=== PATIENT | female | born 1975 | race Caucasian/White ===

== ENCOUNTER 2017-06-21 09:49 | Emergency (ER) | payer OTHER ==
[2017-06-21] MEDS ORDERED: TORAdol 30 mg Injection IM ONE (11:35)
[2017-06-21] MEDS ORDERED: TORAdol 30 mg Injection ONE (11:39)
--- NOTE | 2017-06-21 11:42 | ERPHSYRPT ---
- History of Present Illness Time Seen by Provider: 06/21/17 11:31 Source: patient Exam Limitations: no limitations Patient Subjective Stated Complaint: left upper arm pain been hurting "for a little bit" today worsening pain Triage Nursing Assessment: left upper arm pain, decreased function per client, Physician History: 42 year old white female arrives with complaint of left shoulder pain worse with movement symptoms for 1 month, worse since this am, States she has been seen by her family doctor in the past for the same and given tramadol states "it didn't do anything for me" Past medical history negative Past surgical history hysterectomy, cholecystectomy, c section, left ovary Occurred: other (symptoms for 1 month) Method of Injury: unknown Quality: other (constant, worse since this am) Extremities Pain Location: shoulder: left Modifying Factors: Improves With: movement Associated Symptoms: none Allergies/Adverse Reactions: No Known Drug Allergies Allergy (Unverified 06/21/17 11:46) Hx Tetanus, Diphtheria Vaccination/Date Given: Yes Hx Influenza Vaccination/Date Given: No Hx Pneumococcal Vaccination/Date Given: No Immunizations Up to Date: Yes - Review of Systems Constitutional: No Fever, No Chills Eyes: No Symptoms Ears, Nose, & Throat: No Symptoms Respiratory: No Cough, No Dyspnea Cardiac: No Chest Pain, No Edema, No Syncope Abdominal/Gastrointestinal: No Abdominal Pain, No Nausea, No Vomiting, No Diarrhea Genitourinary Symptoms: No Dysuria Musculoskeletal: Arthralgias (left shoulder pain worse with movement) Skin: No Rash Neurological: No Dizziness, No Focal Weakness, No Sensory Changes Psychological: No Symptoms Endocrine: No Symptoms All Other Systems: Reviewed and Negative - Past Medical History Pertinent Past Medical History: No - Past Surgical History Past Surgical History: Yes Gastrointestinal: Cholecystectomy Female Surgical History: Hysterectomy, Section Other Surgical History: right ovary removed - Social History Smoking Status: Never smoker - Female History Hx Last Menstrual Period: hysterectomy Hx Now: No - Nursing Vital Signs Nursing Vital Signs: Initial Vital Signs Temperature 97.8 F 06/21/17 11:23 Pulse Rate 68 06/21/17 11:23 Respiratory Rate 18 06/21/17 11:23 Blood Pressure 141/91 06/21/17 11:23 O2 Sat by Pulse Oximetry 99 06/21/17 11:23 Pain Scale Pain Intensity 8 - Physical Exam General Appearance: alert Eyes, Ears, Nose, Throat Exam: moist mucous membranes Neck Exam: non-tender, supple Cardiovascular/Respiratory Exam: chest non-tender, normal breath sounds, regular rate/rhythm, no respiratory distress Abdominal Exam: non-tender, No guarding Back Exam: normal inspection, No vertebral tenderness Shoulder Exam: normal ROM, No normal inspection (pain with movement and palpation left shoulder) Elbow/Forearm Exam: normal inspection, non-tender, no evidence of injury, normal ROM Wrist Exam: normal inspection, non-tender, no evidence of injury, normal ROM Hand Exam: normal inspection, non-tender, no evidence of injury, normal ROM Neuro/Tendon Exam: normal sensation, normal motor functions Mental Status Exam: alert, oriented x 3, cooperative Skin Exam: normal color, warm, dry SpO2 Interpretation: normal (99%) SpO2: 99 Oxygen Delivery: Room Air - Course Nursing assessment & vital signs reviewed: Yes - Radiology Exams Right Shoulder X-ray Interpretation: Interpreted by me, Negative, No Fracture, No Subluxation Ordered Tests: Active Orders 24 hr Category Date Time Status EKG-ER Only STAT Care 06/21/17 11:36 Active Sling Application STAT Care 06/21/17 12:35 Active SHOULDER Stat Exams 06/21/17 11:36 Taken Medication Summary Discontinued Medications Generic Name Dose Route Start Last Admin Trade Name Eric PRN Reason Stop Dose Admin Ketorolac Tromethamine 60 mg 06/21/17 11:35 06/21/17 11:41 Toradol 30 Mg Injection IM 06/21/17 11:36 60 mg STAT ONE Administration Ketorolac Tromethamine Confirm 06/21/17 11:39 Toradol 30 Mg Injection Administered 06/21/17 11:40 Dose 60 mg .ROUTE .STK-MED ONE - Progress Progress: improved Progress Note: 06/21/17 12:36 Patient x ray left shoulder negative for fracture or dislocation, ekg no acute changes, patient given toradol for pain . will place patient in sling and prescribe tapering prednisone - Departure Time of Disposition: 12:37 Departure Disposition: Home Clinical Impression: Left shoulder pain Qualifiers: Chronicity: unspecified Qualified Code(s): M25.512 - Pain in left shoulder Condition: Fair Critical Care Time: No Referrals: ANKITA OH II [Primary Care Provider] - Additional Instructions: Return home, ice to left shoulder 24-48 hours, use sling 48-72 hours, prednisone taper as directed, follow up with your family doctor. Return for acute distress or for severe symptoms.
[2017-06-21 12:41] VITALS: BP 128/83; PULSE 56; O2SAT 98
--- NOTE | 2017-06-21 20:46 | XRAY ---
Indication: Pain and numbness one month. No known injury. Comparison: None 3 views of the left shoulder obtained. No bony, articular, or soft tissue abnormalities.
== END 2017-06-21 12:43 | disposition home or self-care (01) ==
LOC: ED 09:49 → SUPCPDRO 09:49 → ED 12:43
DX: M25.512 Pain in left shoulder (principal)
CPT/HCPCS: 73030; 93005; 99284; J1885

== ENCOUNTER 2018-06-22 15:56 | Emergency (ER) | payer OTHER ==
[2018-06-22] MEDS ORDERED: Sodium Chloride 0.9% 1000 ML 1,000 ML IV STA (17:07)
--- NOTE | 2018-06-22 17:07 | ERPHSYRPT ---
- History of Present Illness Time Seen by Provider: 06/22/18 17:04 Source: patient, family Exam Limitations: no limitations Patient Subjective Stated Complaint: Was sitting when she suddenly became light- headed, dizzy and began shaking, about 10 minutes later began vomiting Triage Nursing Assessment: Pt reports that she was sitting when she suddenly became light-headed, dizzy and began shaking, about 10 minutes later began vomiting, can't look up due to getting dizzy, denies any issues prior, last intake at approximately 1100-pizza, bowel sounds heard in all 4 quadrants Physician History: The patient is a 43-year-old female with her complaining that she suddenly became dizzy with the room spinning when she moves her head forward and then began to vomit. She's been vomiting every time she opens her eyes and moves her head forward. She denies abdominal pain. She denies headache. Her past medical history is significant for depression. Timing/Duration: today, hour(s) (1), sudden Severity: severe Modifying Factors: Improves With: nothing Associated Symptoms: nausea, vomiting, No headaches Allergies/Adverse Reactions: No Known Drug Allergies Allergy (Verified 06/22/18 16:13) Home Medications: No Reportable Medications [No Reported Medications] 06/22/18 [History] Hx Tetanus, Diphtheria Vaccination/Date Given: Yes Hx Influenza Vaccination/Date Given: No Hx Pneumococcal Vaccination/Date Given: No - Review of Systems Constitutional: No Fever, No Chills Eyes: No Symptoms Ears, Nose, & Throat: No Symptoms Respiratory: No Cough, No Dyspnea Cardiac: No Chest Pain, No Edema, No Syncope Abdominal/Gastrointestinal: Nausea, Vomiting Genitourinary Symptoms: No Dysuria Musculoskeletal: No Back Pain, No Neck Pain Skin: No Rash Neurological: Dizziness Psychological: No Symptoms Endocrine: No Symptoms Hematologic/Lymphatic: No Symptoms Immunological/Allergic: No Symptoms All Other Systems: Reviewed and Negative - Past Medical History Pertinent Past Medical History: Yes Psycho-Social History: Depression - Past Surgical History Past Surgical History: Yes Gastrointestinal: Cholecystectomy Female Surgical History: Hysterectomy, Section Other Surgical History: right ovary removed - Social History Smoking Status: Never smoker Exposure to second hand smoke: No Drug Use: none Patient Lives Alone: No - Female History Hx Now: No (hysterectomy) - Nursing Vital Signs Nursing Vital Signs: Initial Vital Signs Temperature 97.7 F 06/22/18 16:00 Pulse Rate 77 06/22/18 16:00 Blood Pressure 142/94 06/22/18 16:00 O2 Sat by Pulse Oximetry 96 06/22/18 16:00 Pain Scale Pain Intensity 0 - Physical Exam General Appearance: moderate distress Eye Exam: PERRL/EOMI, eyes nml inspection Ears, Nose, Throat Exam: normal ENT inspection, TMs normal, pharynx normal, moist mucous membranes Neck Exam: normal inspection, non-tender, supple, full range of motion Respiratory Exam: normal breath sounds, lungs clear, No respiratory distress Cardiovascular Exam: regular rate/rhythm, normal heart sounds, normal peripheral pulses Gastrointestinal/Abdomen Exam: soft, normal bowel sounds, No tenderness, No mass Pelvic Exam: not done Rectal Exam: not done Back Exam: normal inspection, normal range of motion, No CVA tenderness, No vertebral tenderness Extremity Exam: normal inspection, normal range of motion, pelvis stable Neurologic Exam: alert, oriented x 3, cooperative, normal mood/affect, nml cerebellar function, nml station & gait, sensation nml, No motor deficits Skin Exam: normal color, warm, dry, No rash Lymphatic Exam: No adenopathy SpO2 Interpretation: normal SpO2: 96 Oxygen Delivery: Room Air - CT Exams Head CT Interpretation: Tele-radiologist Report (per Dr Stoddard), No/Intracranial Hemorrhag, Other (hyperdense mass adjacent to falx most likely meningioma.) Ordered Tests: Active Orders 24 hr Category Date Time Status Project Management Director STAT Care 06/22/18 17:08 Active IV Insertion STAT Care 06/22/18 17:07 Active HEAD WITHOUT CONTRAST [CT] Stat Exams 06/22/18 17:08 Taken CBC W DIFF Stat Lab 06/22/18 17:19 Completed CMP Stat Lab 06/22/18 17:19 Completed Lactic Acid Stat Lab 06/22/18 17:22 Results Medication Summary Discontinued Medications Generic Name Dose Route Start Last Admin Trade Name Freq PRN Reason Stop Dose Admin Sodium Chloride 1,000 mls @ 999 mls/hr 06/22/18 17:07 06/22/18 17:21 Sodium Chloride 0.9% 1000 Ml IV 06/22/18 18:07 999 mls/hr .Q1H1M STA Administration Sodium Chloride Confirm 06/22/18 17:18 Sodium Chloride 0.9% 1000 Ml Administered 06/22/18 17:19 Dose 1,000 mls @ ud .ROUTE .STK-MED ONE Promethazine HCl 25 mg 06/22/18 17:08 06/22/18 17:21 Phenergan 25 Mg Inj IV 06/22/18 17:09 25 mg STAT ONE Administration Promethazine HCl Confirm 06/22/18 17:18 Phenergan 25 Mg Inj Administered 06/22/18 17:19 Dose 25 mg .ROUTE .STK-MED ONE Lab/Rad Data: Laboratory Result Diagrams 06/22/18 17:19 06/22/18 17:19 Laboratory Results 06/22/18 06/22/18 06/22/18 Range/Units 17:22 17:19 17:19 WBC 9.9 (4.0-10.5) K/mm3 RBC 4.32 (4.1-5.4) M/mm3 Hgb 13.2 (12.0-16.0) gm/dl Hct 41.0 (35-47) % MCV 94.9 (78-100) fl MCH 30.6 (26-32) pg MCHC 32.2 (32-36) g/dl RDW 12.9 (11.5-14.0) % Plt Count 301 (150-450) K/mm3 MPV 9.7 H (6-9.5) fl Gran % 71.3 H (36.0-66.0) % Eos # (Auto) 0.16 (0-0.5) Absolute Lymphs (auto) 2.15 (1.0-4.6) Absolute Monos (auto) 0.50 (0.0-1.3) Lymphocytes % 21.7 L (24.0-44.0) % Monocytes % 5.0 (0.0-12.0) % Eosinophils % 1.6 (0.00-5.0) % Basophils % 0.4 (0.0-0.4) % Absolute Granulocytes 7.08 H (1.4-6.9) Basophils # 0.04 (0-0.4) Sodium 142 (137-145) mmol/L Potassium 3.7 (3.5-5.1) mmol/L Chloride 103 (98-107) mmol/L Carbon Dioxide 29 (22-30) mmol/L Anion Gap 13.0 (5-15) MEQ/L BUN 12 (7-17) mg/dL Creatinine 0.63 (0.52-1.04) mg/dL Estimated GFR > 60.0 ML/MIN Glucose 122 H (74-106) mg/dL Lactic Acid 2.0 (0.4-2.0) Calcium 8.9 (8.4-10.2) mg/dL Total Bilirubin 0.20 (0.2-1.3) mg/dL AST 18 (14-36) U/L ALT 14 (0-35) U/L Alkaline Phosphatase 55 (38-126) U/L Serum Total Protein 7.1 (6.3-8.2) g/dL Albumin 4.1 (3.5-5.0) g/dL - Progress Progress: improved Progress Note: 06/22/18 19:09 given phenergan and fluids, feeling better. Counseled pt/family regarding: diagnosis, need for follow-up, rad results - Departure Time of Disposition: 19:10 Departure Disposition: Home Clinical Impression: Dizziness, Calcified cerebral meningioma Condition: Stable Critical Care Time: No Referrals: ANKITA OH II [Primary Care Provider] - Additional Instructions: You had an episode of vertigo with nausea and vomiting. You were given Phenergan and fluids by IV in the ER. The head CT showed a calcified mass in your brain that most likely is a meningioma. Please follow up tomorrow for further evaluation.
[2018-06-22] MEDS ORDERED: Phenergan 25 MG INJ IV ONE (17:08)
[2018-06-22] MEDS ORDERED: Sodium Chloride 0.9% 1000 ML 1,000 ML ONE (17:18)
[2018-06-22] MEDS ORDERED: Phenergan 25 MG INJ ONE (17:18)
[2018-06-22 17:37] LABS: BASOPHIL % 0.4 % (0.0-0.4); Basophil (Absolute #) 0.04 (0-0.4); Eosinophil % 1.6 % (0.00-5.0); Eosinophil (Absolute #) 0.16 (0-0.5); Granulocyte Absolute (ANC) 7.08 (1.4-6.9); Granulocytes % 71.3 % (36.0-66.0); Hemoglobin 13.2 gm/dl (12.0-16.0); Lymphocyte (Absolute #) 2.15 (1.0-4.6); Lymphocytes % 21.7 % (24.0-44.0); Mean Cell Volume 94.9 fl (78-100); Mean Corpuscular Hemoglobin 30.6 pg (26-32); Mean Corpuscular Hgb Concent. 32.2 g/dl (32-36); Mean Platelet Volume 9.7 fl (6-9.5); Platelet Count 301 K/mm3 (150-450); Red Blood Count 4.32 M/mm3 (4.1-5.4); Red Cell Distribution Width 12.9 % (11.5-14.0); White Blood Count 9.9 K/mm3 (4.0-10.5)
[2018-06-22 18:09] LABS: ALBUMIN 4.1 g/dL (3.5-5.0); ALKALINE PHOSPHATASE 55 U/L (38-126); BLOOD UREA NITROGEN 12 mg/dL (7-17); CHLORIDE 103 mmol/L (98-107); Calcium 8.9 mg/dL (8.4-10.2); Carbon Dioxide 29 mmol/L (22-30); Creatinine 1 0.63 mg/dL (0.52-1.04); Glucose 122 mg/dL (74-106); Potassium 3.7 mmol/L (3.5-5.1); SGOT/AST 18 U/L (14-36); SGPT/ALT 14 U/L (0-35); SODIUM 142 mmol/L (137-145); Total Protein 7.1 g/dL (6.3-8.2)
[2018-06-22 19:08] VITALS: BP 125/82; PULSE 69
[2018-06-22 19:12] VITALS: O2SAT 96
--- NOTE | 2018-06-23 08:39 | XRAY ---
Indication: Dizziness and vomiting. Multiple contiguous axial images obtained through the head without contrast. Comparison: None Left paramedian 1.3 cm partially calcified meningioma near the vertex. No acute intracranial hemorrhage, abnormal extra-axial fluid collection, or mass effect. Fourth ventricle is midline without hydrocephalus. Rios-white matter differentiation preserved. Bony calvarium intact. Visualized paranasal sinuses and mastoid air cells are clear. Impression: Left paramedian calcified meningioma near the vertex. No acute intracranial abnormalities. Comment: Preliminary interpretation was made by [facility]. No discrepancy. CTDI 68.15
== END 2018-06-22 19:20 | disposition home or self-care (01) ==
LOC: ED 15:56
DX: R42 Dizziness and giddiness (principal); R11.2 Nausea with vomiting, unspecified; D32.0 Benign neoplasm of cerebral meninges
CPT/HCPCS: 36000; 36415; 70450; 80053; 83605; 85025; 93041; 96360; 96374; 99284; J2550

== ENCOUNTER 2023-04-16 21:45 | Emergency (ER) | payer OTHER ==
[2023-04-16 22:04] VITALS: RESP 18; TEMP 97.5; O2SAT 97
[2023-04-16] MEDS ORDERED: TORAdol 30 mg Injection IM ONE (22:20)
[2023-04-16] MEDS ORDERED: TORAdol 30 mg Injection ONE (22:24)
--- NOTE | 2023-04-16 22:42 | ERPHSYRPT ---
- History of Present Illness Time Seen by Provider: 04/16/23 22:05 Source: patient Exam Limitations: no limitations Patient Subjective Stated Complaint: pt states that she began to have pain in her shoulder last night and the pain has worsen today Triage Nursing Assessment: pt ambulated into the er; pt is axo x4; c/o left shoulder pain; pt denies fall, trauma, injury to left shoulder; good ROM to left shoulder; strong left radial pulse; no respiratory distress present; skin PDW; hypertensive Physician History: 48 years old female presented in the ER with chief complaint of left shoulder pain with movements with progressive worsening since last night. Patient reports it started last night dull aching to sharp pain while she was at work nonradiating, moderate to severe and partial relief after taking Aleve and ibuprofen this morning. Denies any chest pain palpitations or shortness of breath. Denies any fall or trauma. She has tenderness at acromioclavicular joint area. Intact range of motion of shoulder joint. No chest wall tenderness. Lungs bilateral clear to auscultation. I have obtain x-rays which are negative for acute fracture dislocation reviewed by me, official report is pending. Pain is reproducible with movements and palpation. She is given Toradol for symptomatic relief. I believe patient has shoulder strain/overuse injury, recommended taking ibuprofen and Tylenol, intermittent ice application and outpatient orthopedics follow-up. Does not seem cardiac in nature at all. Discussed signs symptoms of worsening needing return to ER which she seems understanding. Allergies/Adverse Reactions: No Known Drug Allergies Allergy (Verified 04/16/23 21:52) Home Medications: Duloxetine HCl [Cymbalta] 30 mg PO DAILY 04/16/23 [History] Lisinopril 20 mg [Zestril 20 MG] 20 mg PO DAILY 04/16/23 [History] Multivitamin [Multi-Vitamin Daily] 1 each PO DAILY 04/16/23 [History] Sertraline HCl [Zoloft] 75 mg PO DAILY 04/16/23 [History] Hx Tetanus, Diphtheria Vaccination/Date Given: No Hx Influenza Vaccination/Date Given: No Hx Pneumococcal Vaccination/Date Given: No Travel Risk - International Travel Have you traveled outside of the country in past 3 weeks: No - Coronavirus Screening Are you exhibiting any of the following symptoms?: Yes Symptoms: Headaches/Body Aches/Fatigue Close contact with a COVID-19 positive Pt in past 14-21 Days: No - Vaccine Status Have you recieved a Covid-19 vaccination: Yes Victim Advocate: Unknown - Vaccination Dates Dates if Unknown: 2020 - Review of Systems Constitutional: No Symptoms Ears, Nose, & Throat: No Symptoms Respiratory: No Symptoms Cardiac: No Symptoms Abdominal/Gastrointestinal: No Symptoms Genitourinary Symptoms: No Symptoms Musculoskeletal: Arthralgias, Joint Pain Skin: No Symptoms Neurological: No Symptoms Endocrine: No Symptoms Hematologic/Lymphatic: No Symptoms - Past Medical History Pertinent Past Medical History: Yes Neurological History: No Pertinent History ENT History: No Pertinent History Cardiac History: Arrhythmia, Hypertension Respiratory History: No Pertinent History Endocrine Medical History: No Pertinent History Musculoskeletal History: No Pertinent History GI Medical History: No Pertinent History History: No Pertinent History Psycho-Social History: Depression Female Reproductive Disorders: No Pertinent History - Past Surgical History Past Surgical History: Yes Gastrointestinal: Cholecystectomy Female Surgical History: Hysterectomy, Section, Lumpectomy Other Surgical History: right ovary removed - Social History Smoking Status: Never smoker Exposure to second hand smoke: No Drug Use: none Patient Lives Alone: No - Female History Hx Now: No - Nursing Vital Signs Nursing Vital Signs: Initial Vital Signs Temperature 97.5 F 04/16/23 21:55 Pulse Rate 92 H 04/16/23 21:55 Respiratory Rate 18 04/16/23 21:55 Blood Pressure 148/84 04/16/23 21:55 O2 Sat by Pulse Oximetry 97 04/16/23 21:55 Pain Scale Pain Intensity 6 - Physical Exam General Appearance: no apparent distress, alert Eyes, Ears, Nose, Throat Exam: normal ENT inspection Neck Exam: normal inspection, non-tender, supple, full range of motion Cardiovascular/Respiratory Exam: chest non-tender, normal breath sounds, regular rate/rhythm Shoulder Exam: normal inspection, bone tenderness (Acromioclavicular area), soft tissue tenderness Elbow/Forearm Exam: normal inspection, non-tender, no evidence of injury, normal ROM Wrist Exam: normal inspection, non-tender, no evidence of injury, normal ROM Neuro/Tendon Exam: normal sensation, tendon function deficit Skin Exam: normal color SpO2 Interpretation: normal SpO2: 97 O2 Delivery: Room Air - Course EKG Interpreted by Me: RATE (76), Sinus Rhythm, NORMAL AXIS, NORMAL INTERVALS, Non-specific ST Changes Ordered Tests: Active Orders 24 hr Category Date Time Status SHOULDER Stat Exams 04/16/23 22:07 Taken Medication Summary Discontinued Medications Generic Name Dose Route Start Last Admin Trade Name Eric PRN Reason Stop Dose Admin Ketorolac Tromethamine 30 mg 04/16/23 22:20 04/16/23 22:24 Ketorolac Tromethamine 30 Mg/Ml Inj IM 04/16/23 22:21 30 mg STAT ONE Administration Ketorolac Tromethamine Confirm 04/16/23 22:24 Ketorolac Tromethamine 30 Mg/Ml Inj Administered 04/16/23 22:25 Dose 30 mg .ROUTE .STK-MED ONE - Progress Progress: improved, re-examined Progress Note: 04/16/23 22:55 48 years old female presented in the ER with chief complaint of left shoulder pain with movements with progressive worsening since last night. Patient reports it started last night dull aching to sharp pain while she was at work nonradiating, moderate to severe and partial relief after taking Aleve and ibuprofen this morning. Denies any chest pain palpitations or shortness of breath. Denies any fall or trauma. She has tenderness at acromioclavicular joint area. Intact range of motion of shoulder joint. No chest wall tenderness. Lungs bilateral clear to auscultation. I have obtain x-rays which are negative for acute fracture dislocation reviewed by me, official report is pending. Pain is reproducible with movements and palpation. She is given Toradol for symptomatic relief. I believe patient has shoulder strain/overuse injury, recommended taking ibuprofen and Tylenol, intermittent ice application and outpatient orthopedics follow-up. EKG is normal sinus rhythm with no acute ischemic changes. Does not seem cardiac in nature at all. Discussed signs symptoms of worsening needing return to ER which she seems understanding. Counseled pt/family regarding: diagnosis, need for follow-up, rad results Medical Desision Making - Diagnostic Testing Diagnostic test were ordered, analyzed, and reviewed by me: Yes Radiological Interpretation: Interpreted by me, Reviewed by me - Risk of complications The pt has a mod risk of morbidity or mortality based on: Need for prescription drug management - Departure Departure Disposition: Home Clinical Impression: Left shoulder strain Condition: Stable Critical Care Time: No Referrals: CARMEN BHATIA DO [Primary Care Provider] - Follow up with PCP 1 day ORTHO - ODIN COMBS NP [NON-STAFF PHY W/O PRIVILEGES] - Follow up/PCP as directed (Tomorrow for reevaluation) Instructions: Shoulder Sprain (DC), Shoulder Tendinopathy (DC) Additional Instructions: Intermittent ice application. Tylenol/ibuprofen as needed. Follow-up with primary care and orthopedics for reevaluation. Avoid exertional activities. Return to ER for worsening pain or if having chest pain palpitations or shortness of breath etc. Prescriptions: Ibuprofen 600 mg PO Q6HPRN PRN 10 Days #20 tablet PRN Reason: Pain
[2023-04-16 23:25] VITALS: BP 112/75; PULSE 81
--- NOTE | 2023-04-17 08:52 | XRAY ---
Indication: Pain. No known injury. Comparison: June 21, 2017 3 view left shoulder demonstrates mild degenerative changes visualized thoracic spine. No other bony, articular, or soft tissue abnormalities.
== END 2023-04-16 23:09 | disposition home or self-care (01) ==
LOC: ED 21:45
DX: S46.912A Strain of unspecified muscle, fascia and tendon at shoulder and upper arm level, left arm, initial encounter (principal); I10 Essential (primary) hypertension; Z79.899 Other long term (current) drug therapy
CPT/HCPCS: 73030; 96372; 99283; J1885